=== PATIENT | female | born 2000 | race Caucasian/White ===

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

== ENCOUNTER 2020-04-09 07:49 | Emergency (ER) | payer OTHER ==
[~2020-04-09] VITALS: Ht 160 cm; Wt 95.3 kg
[2020-04-09 08:23] LABS: BILIRUBIN NEGATIVE (NEGATIVE); BLOOD TRACE-INTACT (NEGATIVE); CLARITY SL CLOUDY (CLEAR); COLOR YELLOW (YELLOW); GLUCOSE NEGATIVE (NEGATIVE); KETONE NEGATIVE (NEGATIVE); LEUKO ESTERASE 1+ (NEGATIVE); NITRITE POSITIVE (NEGATIVE); UROBILINOGEN 0.2 E.U./dl (0.2-1.0); WBC 41-50 wbc/hpf (0-5)
[2020-04-09 08:24] LABS: BACTERIA 4+
[2020-04-09] MEDS ORDERED: SEPTDS PO (08:39)
== END 2020-04-09 08:50 | disposition home or self-care (01) ==
LOC: ED 07:49
PROVIDERS: Emergency Medicine
DX: N39.0 Urinary tract infection, site not specified (principal); K21.9 Gastro-esophageal reflux disease without esophagitis; Z90.49 Acquired absence of other specified parts of digestive tract; Z91.040 Latex allergy status

== ENCOUNTER → 2020-05-31 | Outpatient (CLI) | payer OTHER ==
[~2020-05-31] MED LIST changes: +SEPTDS PO
== END | disposition home or self-care (01) ==
LOC: COVID19 05:18
DX: R05 Cough (principal); R53.83 Other fatigue; Z20.828 Contact with and (suspected) exposure to other viral communicable diseases

== ENCOUNTER → 2020-08-05 | Outpatient (CLI) | payer OTHER | END | disposition home or self-care (01) | LOC: COVID19 02:34 | PROVIDERS: ATTEND Nurse Practitioner Family | DX: R05 Cough (principal); R09.81 Nasal congestion; R53.83 Other fatigue; R07.1 Chest pain on breathing; Z20.828 Contact with and (suspected) exposure to other viral communicable diseases ==

== ENCOUNTER → 2021-03-28 | Outpatient (CLI) | payer OTHER ==
[2021-03-30 02:06] LABS: LUPUS DRVVT 36.2 sec (0.0-47.0); PTT-LA 37.4 sec (0.0-51.9)
[2021-03-30 03:06] LABS: LUPUS REFLEX INTERPRETATION Comment: (.)
== END | disposition home or self-care (01) ==
LOC: LAB 07:57
PROVIDERS: ATTEND Nurse Practitioner Family
DX: N92.6 Irregular menstruation, unspecified (principal); N64.52 Nipple discharge; R21 Rash and other nonspecific skin eruption

== ENCOUNTER 2021-04-30 08:00 | Emergency (ER) | payer OTHER ==
[~2021-04-30] VITALS: Ht 162.5 cm; Wt 104.3 kg
[2021-04-30] MEDS ORDERED: TYLENOL325 M1 PO (08:22)
[2021-04-30] MEDS ORDERED: NAPROXEN250 MG PO (08:22)
[2021-04-30] MEDS ORDERED: AUGMENTIN 875-875 MG PO (08:22)
== END 2021-04-30 08:39 | disposition home or self-care (01) ==
LOC: ED 08:00
DX: S61.256A Open bite of right little finger without damage to nail, initial encounter (principal); Z91.040 Latex allergy status; Z79.899 Other long term (current) drug therapy; W64.XXXA Exposure to other animate mechanical forces, initial encounter; Y93.89 Activity, other specified; Y92.89 Other specified places as the place of occurrence of the external cause; Y99.8 Other external cause status

== ENCOUNTER 2021-09-15 07:24 | Emergency (ER) | payer OTHER ==
[~2021-09-15] VITALS: Ht 160 cm; Wt 104.3 kg
[~2021-09-15 07:24] MED LIST changes: +AUGMENTIN 875-875 MG PO; +NAPROXEN250 MG PO; +TYLENOL325 M1 PO
[2021-09-15] MEDS ORDERED: METFORMIN XR500 MG PO (07:40)
[2021-09-15] MEDS ORDERED: DOCUSATE SOD100 MG PO (07:40)
[2021-09-15] MEDS ORDERED: OMEPRAZOLE MAGN20 MG PO (07:40)
[2021-09-15] MEDS ORDERED: PAROXETINE HCL10 MG PO (07:41)
[2021-09-15] MEDS ORDERED: Synthroid,Levo25 MCG PO (07:41)
[2021-09-15] MEDS ORDERED: VITAMIN D3125 MC1 PO (07:42)
[2021-09-15] MEDS ORDERED: TOPIRAMATE25 M3 PO (07:42)
[2021-09-15] MEDS ORDERED: FAMOTIDINE40 MG PO (07:43)
[2021-09-15] MEDS ORDERED: RELAFEN500 M1 PO (07:44)
[2021-09-15] MEDS ORDERED: CYCLOBENZAPRINE5 M3 PO (08:21)
== END 2021-09-15 08:35 | disposition home or self-care (01) ==
LOC: ED 07:24
DX: S46.911A Strain of unspecified muscle, fascia and tendon at shoulder and upper arm level, right arm, initial encounter (principal); Z88.8 Allergy status to other drugs, medicaments and biological substances; Z91.040 Latex allergy status; Z79.899 Other long term (current) drug therapy; X50.0XXA Overexertion from strenuous movement or load, initial encounter; Y93.89 Activity, other specified; Y92.89 Other specified places as the place of occurrence of the external cause; Y99.8 Other external cause status

== ENCOUNTER 2021-12-27 13:02 | Emergency (ER) | payer OTHER ==
[~2021-12-27] VITALS: Ht 160 cm; Wt 103.0 kg
[~2021-12-27 13:02] MED LIST changes: +CYCLOBENZAPRINE5 M3 PO; +DOCUSATE SOD100 MG PO; +FAMOTIDINE40 MG PO; +METFORMIN XR500 MG PO; +OMEPRAZOLE MAGN20 MG PO; +PAROXETINE HCL10 MG PO; +RELAFEN500 M1 PO; +Synthroid,Levo25 MCG PO; +TOPIRAMATE25 M3 PO; +VITAMIN D3125 MC1 PO
[2021-12-27 15:27] LABS: BASO % 0.3 % (0.0-1.0); EOS % 0.6 % (1.0-4.0); LYMPH # 2.1 10*3/uL (1.3-4.4); LYMPH % 31.2 % (27.0-41.0); MEAN CORPUSCULAR HGB 30.1 pg (27.0-31.0); MEAN CORPUSCULAR HGB CONC 33.8 g/dl (33.0-37.0); MEAN PLATELET VOLUME 10.1 fl (9.6-12.3); MONO # 0.5 10*3/uL (0.1-1.0); MONO % 7.8 % (3.0-9.0); NEUT # 4.1 10*3/uL (2.3-7.9); PLATELET COUNT AUTOMATED 205 10*3/uL (130-400); RED BLOOD COUNT 4.72 10*6/uL (4.10-5.10); RED CELL DISTRI WIDTH 12.3 % (0-14.5); WHITE BLOOD COUNT 6.8 10*3/uL (4.8-10.8)
[2021-12-27 15:45] LABS: ALKALINE PHOSPHATASE 78 U/L (45-117); BUN 9 mg/dl (7-24); CHLORIDE 109 mmol/L (98-107); CREATININE 0.69 mg/dL (0.55-1.02); LIPASE 70 U/L (73-393); POTASSIUM 3.4 mmol/L (3.5-5.1); SGOT/AST 18 IU/L (3-35); SGPT/ALT 36 U/L (12-78); SODIUM 137 mmol/L (136-145); TOTAL PROTEIN 7.6 gm/dL (6.4-8.2)
[2021-12-27] MEDS ORDERED: ZOFRAN4 MG PO (17:30)
== END 2021-12-27 17:46 | disposition home or self-care (01) ==
LOC: ED 13:02
PROVIDERS: Physician Assistant
DX: A08.4 Viral intestinal infection, unspecified (principal); Z91.040 Latex allergy status; Z88.8 Allergy status to other drugs, medicaments and biological substances; Z79.899 Other long term (current) drug therapy